=== PATIENT | female | born 1985 | race Two or more races ===

== ENCOUNTER 2020-07-03 14:25 | Emergency (ER) | payer OTHER ==
[2020-07-03 17:05] LABS: HEMOGLOBIN 13.3 gm/dl (12.3-15.3); RED BLOOD COUNT 4.62 M/UL (4.00-5.10)
[2020-07-03 17:25] LABS: BUN/CREATININE RATIO 11 (0-10)
== END 2020-07-03 18:31 | disposition home or self-care (01) ==
LOC: ER1 14:25
PROVIDERS: Physician Assistant Medical
DX: O20.9 Hemorrhage in early pregnancy, unspecified (principal); O24.911 Unspecified diabetes mellitus in pregnancy, first trimester; Z79.899 Other long term (current) drug therapy; Z3A.13 13 weeks gestation of pregnancy
CPT/HCPCS: 80053; 81001; 84702; 85025; 85610; 86900; 86901; 99284

== ENCOUNTER 2020-12-26 16:24 | Inpatient (IN) | payer OTHER ==
[~2020-12-26] VITALS: Ht 165.1 cm; Wt 129.3 kg
[2020-12-26 16:50] LABS: HEMOGLOBIN 12.6 gm/dl (12.3-15.3); RED BLOOD COUNT 4.45 M/UL (4.00-5.10); WHITE BLOOD COUNT 11.5 K/UL (4.5-11.0)
[2020-12-26] MEDS ORDERED: ATENOLOL25 MG PO (17:06)
[2020-12-26] MEDS ORDERED: PRENATAL VITAM1 EAC6 PO (17:07)
[2020-12-27] MEDS ORDERED: IBUPROFEN600 MG PO (18:34)
[2020-12-27] MEDS ORDERED: DOCUSATE SODIU100 MG PO (18:35)
[2020-12-27] MEDS ORDERED: HYDROCODON-ACE1 EAC4 PO (18:35)
[2020-12-28 06:26] LABS: HEMOGLOBIN 11.3 gm/dl (12.3-15.3)
== END 2020-12-29 13:21 | disposition home or self-care (01) | DRG 806 ==
LOC: GENOP 16:24 → OB 16:34
PROVIDERS: Obstetrics & Gynecology; ADMIT Obstetrics & Gynecology
PROC: 10E0XZZ Delivery of Products of Conception, External Approach (ICD-10-PCS; principal; 2020-12-27)
PROC: 0KQM0ZZ Repair Perineum Muscle, Open Approach (ICD-10-PCS; 2020-12-27)
PROC: 10907ZC Drainage of Amniotic Fluid, Therapeutic from Products of Conception, Via Natural or Artificial Opening (ICD-10-PCS; 2020-12-27)
PROC: 10H07YZ Insertion of Other Device into Products of Conception, Via Natural or Artificial Opening (ICD-10-PCS; 2020-12-27)
PROC: 4A1H7CZ Monitoring of Products of Conception, Cardiac Rate, Via Natural or Artificial Opening (ICD-10-PCS; 2020-12-27)
PROC: 10H073Z Insertion of Monitoring Electrode into Products of Conception, Via Natural or Artificial Opening (ICD-10-PCS; 2020-12-27)
PROC: 3E0234Z Introduction of Serum, Toxoid and Vaccine into Muscle, Percutaneous Approach (ICD-10-PCS; 2020-12-27)
PROC: 3E02340 Introduction of Influenza Vaccine into Muscle, Percutaneous Approach (ICD-10-PCS; 2020-12-29)
DX: O36.5930 Maternal care for other known or suspected poor fetal growth, third trimester, not applicable or unspecified (principal); O10.92 Unspecified pre-existing hypertension complicating childbirth; Z37.0 Single live birth; Z20.822 Contact with and (suspected) exposure to COVID-19; O99.824 Streptococcus B carrier state complicating childbirth; O99.214 Obesity complicating childbirth; E66.01 Morbid (severe) obesity due to excess calories; O70.1 Second degree perineal laceration during delivery; O99.344 Other mental disorders complicating childbirth; F41.9 Anxiety disorder, unspecified; F32.A Depression, unspecified; Z3A.38 38 weeks gestation of pregnancy; Z23 Encounter for immunization
CPT/HCPCS: 36415; 51702; 81001; 82800; 85014; 85018; 85025; 90471; 90686; 90715; G0008; J0595; J2590; J7120